=== PATIENT | male | born 1960 | race Two or more races ===

== ENCOUNTER 2018-05-21 14:56 | Emergency (ER) | payer OTHER, MEDICAID ==
[2018-05-21 15:02] VITALS: BP 126/86
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
== END 2018-05-21 16:26 | disposition home or self-care (01) ==
DX: S49.91XA Unspecified injury of right shoulder and upper arm, initial encounter (principal); V43.02XA Car driver injured in collision with other type car in nontraffic accident, initial encounter; Y92.410 Unspecified street and highway as the place of occurrence of the external cause